=== PATIENT | female | born 1935 | race Caucasian/White ===

== ENCOUNTER → 2016-07-14 | Outpatient (CLI) | payer OTHER ==
--- NOTE | 2016-07-14 19:20 | DX ---
DEXA Bone Mineral Densitometry Screening Clinical Indications: Previous outside diagnosis of osteopenia. On the questionnaire, the patient re ports back pain. History of thyroid disease on Synthroid medication. Patient takes supplemental calci um and vitamin D. Comparison: Baseline evaluation Technique: Bone Mineral Densitometry (BMD) by Dual Energy X-Ray Absorptiometry (DEXA) was performed utilizing the hoohbe scanner. The lumbar spine was evaluated in the AP projection. The bilat eral hips and left forearm were evaluated in the AP projection. Vertebral fracture assessment was als o performed. AP Lumbar Spine: The L1, L2, L3 and L4 vertebral bodies are evaluated. BMD: 1.084 gm/cm2 T-score: -0.9 SD Z-score: 0.7 SD AP Left Hip: BMD: 0.728 gm/cm2 T-score: -2.2 SD Z-score: -0.4 SD AP Right Hip: BMD: 0.72 to gm/cm2 T-score: -2.3 SD Z-score: -0.4 SD AP Left Forearm: BMD: 0.609 gm/cm2 T-score: -3.1 SD Z-score: -0.3 SD Vertebral Fracture Assessment: No significant fracture deformity. The ten year risk for any major osteoporotic fracture is 18.9% and for a hip fracture is 6.4%. Conclusion: Considering the lowest measured site, the patient is osteoporotic with the greatest degre e in the forearm. Any bone loss in this patient is probably related to aging or estrogen deficiency. Preferential bone loss in the forearm does raise the possibility of underlying hyperparathyroidism. Recommendations: To prevent osteoporosis and to promote bone density, consider the followin. Consider checking patient's PTH and serum calcium and phosphorus levels for possible hyperparathyr oidism. 2. Pursue a regular regimen of weightbearing and muscle-strengthening exercises in order to reduce th e risk of falls and fracture (as tolerated by the patient's general medical condition). 3. Ensure that total daily calcium intake is at least 1500 mg (DIET more important than supplements). 4. Check serum hydroxy vitamin D3 (normal >30ng/ml). 5. Ensure daily intake of vitamin D at least 800 international units. 6. Consider follow up DEXA scan in two years to assess the rate of bone loss in this patient. 7. If secondary causes are excluded, then consider initiating treatment with a bisphosphonate (such a s Fosamax, Actonel or Boniva). If the patient is unable to use an oral bisphosphonate, another agent such as IV bisphosphonates (Boniva or Reclast), teriparatide (Forteo), or a selective estrogen recept or modulator (Evista) might be considered.
== END ==
LOC: BRMIMAGING 11:08
PROVIDERS: ATTEND Family Medicine
DX: Z13.820 Encounter for screening for osteoporosis (principal); M81.0 Age-related osteoporosis without current pathological fracture; M85.80 Other specified disorders of bone density and structure, unspecified site; Z86.39 Personal history of other endocrine, nutritional and metabolic disease